=== PATIENT | female | born 1940 | race American Indian/Alaskan Native ===

== ENCOUNTER 2018-10-21 21:30 | Inpatient (IN) | payer MEDICARE ==
[2018-10-21 23:12] LABS: Alanine Aminotransferase 7 units/L (7-56); BUN/Creatinine Ratio 6; Blood Urea Nitrogen 5 mg/dL (7-17); Hemolysis Index 26
[2018-10-21] MEDS ORDERED: NACL 0.9% 1000 ML 1,000 ML IV ONE ×2 (23:34→23:44)
[2018-10-22 00:30] LABS: Basophils # (Auto) 0.1 K/mm3 (0.0-0.1); Basophils % (Auto) 1.3 % (0.0-1.8); Eosinophils # (Auto) 0.1 K/mm3 (0.0-0.4); Eosinophils % (Auto) 1.6 % (0.0-4.3); Hematocrit 34.7 % (30.3-42.9); Hemoglobin 11.1 gm/dl (10.1-14.3); Lymphocytes # (Auto) 1.1 K/mm3 (1.2-5.4); Lymphocytes % (Auto) 28.1 % (13.4-35.0); Mean Corpuscular HGB Conc 32 % (30-34); Mean Corpuscular Volume 74 fl (79-97); Monocytes # (Auto) 0.4 K/mm3 (0.0-0.8); Monocytes % (Auto) 10.3 % (0.0-7.3); Platelet Count 198 K/mm3 (140-440); Red Blood Count 4.66 M/mm3 (3.65-5.03); Red Cell Distribution Width 13.9 % (13.2-15.2)
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
--- NOTE | 2018-10-22 00:53 | XRay Report ---
PROCEDURE: XR CHEST 1V AP TECHNIQUE: A portable upright view the chest was submitted. HISTORY: Altered Mental Status COMPARISONS: None FINDINGS: The heart size and pulmonary vasculature appear normal. The lungs are clear. Pleural fluid is not see n. The skeletal structures do not show any acute changes. IMPRESSION: No acute cardiopulmonary process.. This document is electronically signed by Benson Romero MD., October 22 2018 12:50:59 AM ET
--- NOTE | 2018-10-22 00:54 | Cat Scan Report ---
COMPUTED TOMOGRAPHY, HEAD, WITHOUT. CLINICAL STATEMENT: Altered mental status. COMPARISON: None available. TECHNIQUE: Non-contrast CT brain. MPR. Overall image quality is satisfactory. COMMENTS: BONE - Calvarium: Intact. Central skull base: Intact. Temporal mastoids: No effusion. Included paranasal sinuses: Well aerated. Intracranial vascular calcifications. CSF SPACES - Ventricles: Prominent. Subarachnoid spaces: Prominent. Prominence of the sylvian fissures, sulcal enlargement and rounding of the frontal horns lateral vent ricles. BRAIN - Moderate periventricular variable white matter ages, most prominent in the left frontal white matter. The cortical ribbon appears maintained. No acute intracranial bleed, large vessel territory infarct or mass. IMPRESSION: 1. No definitive acute intracranial pathology. 2. Multifocal white matter hypodensities and prominence of the CSF containing spaces as above. Diffe rential diagnosis includes aging brain morphology, unspecified dementia or normal pressure hydrocepha kim. Correlation with clinical exam requested. RECOMMENDATION: Concern for acute on chronic small vessel ischemic change, MRI can confirm. This document is electronically signed by Donald Draper DO., October 22 2018 12:52:00 AM ET
[2018-10-22] MEDS ORDERED: ROCEPHIN/NS 1 GM/50 ML 1 GM/50 ML BAG IV ONE (01:16)
[2018-10-22] MEDS ORDERED: BABY ASPIRIN PO ONE (01:16)
[2018-10-22 02:16] LABS: Amphetamine Screen,Urine PRESUMPTIVE NEGATIVE; Benzodiazepines Screen,Urine PRESUMPTIVE NEGATIVE; Cannabinoid Screen,Urine PRESUMPTIVE NEGATIVE; Cocaine Screen,Urine PRESUMPTIVE NEGATIVE; Methadone Screen,Urine PRESUMPTIVE NEGATIVE; Opiate Screen,Urine PRESUMPTIVE NEGATIVE
[2018-10-22 02:17] LABS: Bacteria,Urine 1+ /HPF (Negative); Bilirubin,Urine NEG (Negative); Blood,Urine NEG (Negative); Color,Urine Yellow (Yellow); Mucus,Urine FEW /HPF; Protein,Urine <15 mg/dL mg/dL (Negative)
[2018-10-22] MEDS ORDERED: ZOFRAN IV PRN (02:22)
[2018-10-22] MEDS ORDERED: TYLENOL PO PRN (02:22)
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
[2018-10-22] MEDS: HEPARIN SUB-Q SCH ×2 (09:23→21:30)
[2018-10-22] MEDS ORDERED: APRESOLINE IV PRN (14:02)
--- NOTE | 2018-10-22 14:04 | Event Note ---
htn urgency I was called by RN that patient had elevated blood pressure. I have reviewed the medical reconciliation sheets. she takes Nigel inhibitor and statins at home. I have restarted her home medications and also added hydralazine when necessary hypertension
[2018-10-22] MEDS ORDERED: LOVASTATIN 20 MG PO SCH (14:15)
[2018-10-22] MEDS ORDERED: NON-FORMULARY (Lisinopril 40 MG) PO SCH (14:15)
[2018-10-22] MEDS: ZESTRIL PO SCH (18:18)
[2018-10-22] MEDS: PRAVACHOL PO SCH (21:15)
[2018-10-22] MEDS: ROCEPHIN/NS 1 GM/50 ML 1 GM/50 ML BAG IV SCH (21:41)
[2018-10-23] MEDS: ZESTRIL PO SCH (10:32)
[2018-10-23] MEDS: HEPARIN SUB-Q SCH ×2 (10:32→21:39)
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
[2018-10-23] MEDS: ROCEPHIN/NS 1 GM/50 ML 1 GM/50 ML BAG IV SCH (21:33)
[2018-10-23] MEDS: PRAVACHOL PO SCH (21:39)
[2018-10-24] MEDS: HEPARIN SUB-Q SCH ×2 (11:03→22:41)
[2018-10-24] MEDS: ZESTRIL PO SCH (14:05)
--- NOTE | 2018-10-24 14:29 | Discharge Summary ---
Providers - Providers Date of Admission: 10/22/18 03:46 Attending physician: SEEMA COOPER MD 10/22/18 02:23 Consult to Case Management [CONS] Routine Services Needed at Discharge: Other Notified:: YES Phone number called:: [phone] Was contact made?: Yes If yes, spoke with:: VISHNU Time called:: 12:14 Comment:: PATIENT NEED PLACEMENT 10/22/18 11:26 Physical Therapy Evaluation and Treat [CONS] Routine Comment: Reason For Exam: weakness Primary care physician: JANNY CONN Hospitalization Condition: Stable Hospital course: 77-year-old woman with history of Alzheimer's dementia, urinary incontinence.. The patient apparently was driving her car, driving erratically, she was pulled over by police and brought to ER Past medical history; Alzheimer's dementia, urinary incontinence, hypertension Diagnosis Acute metabolic encephalopathy UTI ruled out Alzheimer's dementia Hypokalemia Hypertensive urgency Hospital course UTI was ruled out, urine cultures were negative Potassium was repleted, BP meds are being optimized -It was discussed with her family to watch her more closely and keep car keys away from her in the future for her safety Case was discussed with her daughter Disposition: [id number] HOME UNDER HOME [facility] Time spent for discharge: 33 minutes Core Measure Documentation - Palliative Care Palliative Care/ Comfort Measures: Not Applicable - Core Measures Any of the following diagnoses?: none Exam - Physical Exam Narrative exam: General.: Appears well, no distress, nontoxic HEENT: Moist mucous membranes, extraocular muscles intact, no lymphadenopathy Neck: supple Cardiac: S1-S2 heard Lungs: clear to auscultation bilaterally Abdomen: soft , nontender, nondistended, bowel sounds positive Extremities: no edema clubbing or cyanosis Skin: no rash or lesions Neurologic: no gross focal deficits, pleasantly demented Psych: calm, and cooperative - Constitutional Vitals: Temp Pulse Resp BP Pulse Ox 99.2 F 64 20 131/48 98 10/24/18 12:47 10/24/18 12:47 10/24/18 12:47 10/24/18 12:47 10/24/18 12:47 Plan Follow up with: KIET MAURICIO MD [Referring] - 3-5 Days
--- NOTE | 2018-10-24 18:00 | Progress Note ---
Assessment and Plan Assessment and plan: 77-year-old woman with history of Alzheimer's dementia, urinary incontinence.. The patient apparently was driving her car, driving erratically, shows ampulla by police with emergency emergency room Past medical history; Alzheimer's dementia, urinary incontinence, hypertension Diagnosis Acute metabolic encephalopathy UTI ruled out Alzheimer's dementia Hypokalemia Hypertensive urgency Plan Potassium was repleted, BP meds are being optimized awaiting snf placement per family request Case was discussed with her daughter History Interval history: Review of systems Constitutional: No fevers, no malaise, no joint pains CVS: No chest pain, no orthopnea, no dyspnea on exertion, no pedal edema GI: No abdominal pain, no diarrhea, no vomiting, no constipation Respiratory: No shortness of breath, no wheezing, no coughing Hospitalist Physical - Physical exam Narrative exam: General.: Appears well, no distress, nontoxic HEENT: Moist mucous membranes, extraocular muscles intact, no lymphadenopathy Neck: supple Cardiac: S1-S2 heard Lungs: clear to auscultation bilaterally Abdomen: soft , nontender, nondistended, bowel sounds positive Extremities: no edema clubbing or cyanosis Skin: no rash or lesions Neurologic: no gross focal deficits, pleasantly demented Psych: calm, and cooperative - Constitutional Vitals: Temp Pulse Resp BP Pulse Ox 99.2 F 64 20 131/48 98 10/24/18 12:47 10/24/18 12:47 10/24/18 12:47 10/24/18 12:47 10/24/18 12:47 Results - Labs CBC & Chem 7: 10/22/18 00:08 10/23/18 13:33 Labs: Laboratory Last Values WBC 3.9 K/mm3 (4.5-11.0) L 10/22/18 00:08 RBC 4.66 M/mm3 (3.65-5.03) 10/22/18 00:08 Hgb 11.1 gm/dl (10.1-14.3) 10/22/18 00:08 Hct 34.7 % (30.3-42.9) 10/22/18 00:08 MCV 74 fl (79-97) L 10/22/18 00:08 MCH 24 pg (28-32) L 10/22/18 00:08 MCHC 32 % (30-34) 10/22/18 00:08 RDW 13.9 % (13.2-15.2) 10/22/18 00:08 Plt Count 198 K/mm3 (140-440) 10/22/18 00:08 Lymph % (Auto) 28.1 % (13.4-35.0) 10/22/18 00:08 [place] % (Auto) 10.3 % (0.0-7.3) H 10/22/18 00:08 Eos % (Auto) 1.6 % (0.0-4.3) 10/22/18 00:08 Baso % (Auto) 1.3 % (0.0-1.8) 10/22/18 00:08 Lymph # 1.1 K/mm3 (1.2-5.4) L 10/22/18 00:08 [place] # 0.4 K/mm3 (0.0-0.8) 10/22/18 00:08 Eos # 0.1 K/mm3 (0.0-0.4) 10/22/18 00:08 Baso # 0.1 K/mm3 (0.0-0.1) 10/22/18 00:08 Seg Neutrophils % 58.7 % (40.0-70.0) 10/22/18 00:08 Seg Neutrophils # 2.3 K/mm3 (1.8-7.7) 10/22/18 00:08 Sodium 142 mmol/L (137-145) 10/21/18 21:50 Potassium 3.7 mmol/L (3.6-5.0) 10/23/18 13:33 Chloride 105.8 mmol/L (98-107) 10/21/18 21:50 Carbon Dioxide 21 mmol/L (22-30) L 10/21/18 21:50 Anion Gap 19 mmol/L 10/21/18 21:50 BUN 5 mg/dL (7-17) L 10/21/18 21:50 Creatinine 0.8 mg/dL (0.7-1.2) 10/21/18 21:50 Estimated GFR > 60 ml/min 10/21/18 21:50 BUN/Creatinine Ratio 6 % 10/21/18 21:50 Glucose 87 mg/dL (65-100) 10/21/18 21:50 Lactic Acid 1.20 mmol/L (0.7-2.0) 10/21/18 23:58 Calcium 9.0 mg/dL (8.4-10.2) 10/21/18 21:50 Magnesium 2.00 mg/dL (1.7-2.3) 10/23/18 13:33 Total Bilirubin 1.10 mg/dL (0.1-1.2) 10/21/18 21:50 AST 14 units/L (5-40) 10/21/18 21:50 ALT 7 units/L (7-56) 10/21/18 21:50 Alkaline Phosphatase 70 units/L (35-129) 10/21/18 21:50 Ammonia 27.0 umol/L (25-60) 10/21/18 23:58 Total Creatine Kinase 148 units/L (30-135) H 10/21/18 23:58 Troponin T < 0.010 ng/mL (0.00-0.029) 10/21/18 23:58 Total Protein 7.2 g/dL (6.3-8.2) 10/21/18 21:50 Albumin 4.0 g/dL (3.9-5) 10/21/18 21:50 Albumin/Globulin Ratio 1.3 % 10/21/18 21:50 TSH 1.810 mlU/mL (0.270-4.200) 10/21/18 23:58 Urine Color Yellow (Yellow) 10/22/18 01:57 Urine Turbidity Hazy (Clear) 10/22/18 01:57 Urine pH 6.0 (5.0-7.0) 10/22/18 01:57 Ur Specific [place] 1.010 (1.003-1.030) 10/22/18 01:57 Urine Protein <15 mg/dl mg/dL (Negative) 10/22/18 01:57 Urine Glucose (UA) Neg mg/dL (Negative) 10/22/18 01:57 Urine Ketones 20 mg/dL (Negative) 10/22/18 01:57 Urine Blood Neg (Negative) 10/22/18 01:57 Urine Nitrite Neg (Negative) 10/22/18 01:57 Urine Bilirubin Neg (Negative) 10/22/18 01:57 Urine Urobilinogen 2.0 mg/dL (<2.0) 10/22/18 01:57 Ur Leukocyte Esterase Mod (Negative) 10/22/18 01:57 Urine WBC (Auto) 17.0 /HPF (0.0-6.0) H 10/22/18 01:57 Urine RBC (Auto) 1.0 /HPF (0.0-6.0) 10/22/18 01:57 U Epithel Cells (Auto) < 1.0 /HPF (0-13.0) 10/22/18 01:57 Urine Bacteria (Auto) 1+ /HPF (Negative) 10/22/18 01:57 Urine Mucus Few /HPF 10/22/18 01:57 Salicylates < 0.3 mg/dL (2.8-20.0) L 10/21/18 23:58 Urine Opiates Screen Presumptive negative 10/22/18 01:57 Urine Methadone Screen Presumptive negative 10/22/18 01:57 Acetaminophen < 5.0 ug/mL (10.0-30.0) L 10/21/18 23:58 Ur Barbiturates Screen Presumptive negative 10/22/18 01:57 Ur Phencyclidine Scrn Presumptive negative 10/22/18 01:57 Ur Amphetamines Screen Presumptive negative 10/22/18 01:57 U Benzodiazepines Scrn Presumptive negative 10/22/18 01:57 Urine Cocaine Screen Presumptive negative 10/22/18 01:57 U Marijuana (THC) Screen Presumptive negative 10/22/18 01:57 Drugs of Abuse Note Disclamer 10/22/18 01:57 Plasma/Serum Alcohol < 0.01 % (0-0.07) 10/21/18 23:58 Nutrition/Malnutrition Assess - Dietary Evaluation Nutrition/Malnutrition Findings: Nutrition Notes Start: 10/22/18 14:48 Freq: Status: Active Protocol: Document 10/22/18 14:48 RM (Rec: 10/22/18 14:58 RM [id number]) Nutrition Notes Need for Assessment generated from: welfare worker Initial or Follow up Assessment Other Pertinent Diagnosis Alzheimer dementia, Urinary incontinence, UTI Current Diet Regular Labs/Tests Reviewed Pertinent Medications Reviewed Height 5 ft 4 in Weight 65.503 kg Usual Body Weight 68.18 kg [place] Body Weight (kg) 54.54 BMI 24.7 Weight change and time frame 3.9% wt loss X 1 year Subjective/Other Information Screened for skin risk. Earle 18 points. Pt, pt sister, and pt [id number] in room at time of visit. Pt sister and fjujrzy-iu-[id number] helped answered questions. 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 Stated that pt ate half of her breakfast this morning. Estimated pt UBW of 150 lbs 1 year ago. 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 No Is Patient Ambulatory and/or Out of Bed Yes REE-([facility]-ambulatory/OOB) [ 1449.539 NUTR.MSJOOB] Calculation Used for Recommendations [facility] Additional Notes Protein Needs: 64-76g (1-1.2g/ kg) Fluid Needs: 1 ml/kcal Nutrition Intervention Change Diet Order: Continue current Add Supplement/Snack (indicate name/kcal Ensure Enlive [place] 1 /protein ) daily Provides kCal: 350 Provides Protein (gm) 20 Goal #1 Meet at least 75% of calorie and protein needs via PO and ONS intakes Goal #2 Wt maintenance Anticipated Discharge Needs: Regular diet Follow-Up By: 10/25/18 Additional Comments Follow for PO and ONS intakes
[2018-10-24] MEDS ORDERED: RisperDAL PO ONE (20:54)
[2018-10-24] MEDS: PRAVACHOL PO SCH (22:30)
[2018-10-24] MEDS: ROCEPHIN/NS 1 GM/50 ML 1 GM/50 ML BAG IV SCH (22:30)
[2018-10-25] MEDS: ZESTRIL PO SCH (09:52)
[2018-10-25] MEDS: HEPARIN SUB-Q SCH ×2 (09:53→10:00)
--- NOTE | 2018-10-25 10:52 | Progress Note ---
Hospitalist Physical - Constitutional Vitals: Temp Pulse Resp BP Pulse Ox 98.5 F 65 20 146/62 98 10/25/18 07:34 10/25/18 09:52 10/25/18 07:34 10/25/18 09:52 10/25/18 09:41 Results - Labs CBC & Chem 7: 10/22/18 00:08 10/23/18 13:33 Labs: Laboratory Last Values WBC 3.9 K/mm3 (4.5-11.0) L 10/22/18 00:08 RBC 4.66 M/mm3 (3.65-5.03) 10/22/18 00:08 Hgb 11.1 gm/dl (10.1-14.3) 10/22/18 00:08 Hct 34.7 % (30.3-42.9) 10/22/18 00:08 MCV 74 fl (79-97) L 10/22/18 00:08 MCH 24 pg (28-32) L 10/22/18 00:08 MCHC 32 % (30-34) 10/22/18 00:08 RDW 13.9 % (13.2-15.2) 10/22/18 00:08 Plt Count 198 K/mm3 (140-440) 10/22/18 00:08 Lymph % (Auto) 28.1 % (13.4-35.0) 10/22/18 00:08 [place] % (Auto) 10.3 % (0.0-7.3) H 10/22/18 00:08 Eos % (Auto) 1.6 % (0.0-4.3) 10/22/18 00:08 Baso % (Auto) 1.3 % (0.0-1.8) 10/22/18 00:08 Lymph # 1.1 K/mm3 (1.2-5.4) L 10/22/18 00:08 [place] # 0.4 K/mm3 (0.0-0.8) 10/22/18 00:08 Eos # 0.1 K/mm3 (0.0-0.4) 10/22/18 00:08 Baso # 0.1 K/mm3 (0.0-0.1) 10/22/18 00:08 Seg Neutrophils % 58.7 % (40.0-70.0) 10/22/18 00:08 Seg Neutrophils # 2.3 K/mm3 (1.8-7.7) 10/22/18 00:08 Sodium 142 mmol/L (137-145) 10/21/18 21:50 Potassium 3.7 mmol/L (3.6-5.0) 10/23/18 13:33 Chloride 105.8 mmol/L (98-107) 10/21/18 21:50 Carbon Dioxide 21 mmol/L (22-30) L 10/21/18 21:50 Anion Gap 19 mmol/L 10/21/18 21:50 BUN 5 mg/dL (7-17) L 10/21/18 21:50 Creatinine 0.8 mg/dL (0.7-1.2) 10/21/18 21:50 Estimated GFR > 60 ml/min 10/21/18 21:50 BUN/Creatinine Ratio 6 % 10/21/18 21:50 Glucose 87 mg/dL (65-100) 10/21/18 21:50 Lactic Acid 1.20 mmol/L (0.7-2.0) 10/21/18 23:58 Calcium 9.0 mg/dL (8.4-10.2) 10/21/18 21:50 Magnesium 2.00 mg/dL (1.7-2.3) 10/23/18 13:33 Total Bilirubin 1.10 mg/dL (0.1-1.2) 10/21/18 21:50 AST 14 units/L (5-40) 10/21/18 21:50 ALT 7 units/L (7-56) 10/21/18 21:50 Alkaline Phosphatase 70 units/L (35-129) 10/21/18 21:50 Ammonia 27.0 umol/L (25-60) 10/21/18 23:58 Total Creatine Kinase 148 units/L (30-135) H 10/21/18 23:58 Troponin T < 0.010 ng/mL (0.00-0.029) 10/21/18 23:58 Total Protein 7.2 g/dL (6.3-8.2) 10/21/18 21:50 Albumin 4.0 g/dL (3.9-5) 10/21/18 21:50 Albumin/Globulin Ratio 1.3 % 10/21/18 21:50 TSH 1.810 mlU/mL (0.270-4.200) 10/21/18 23:58 Urine Color Yellow (Yellow) 10/22/18 01:57 Urine Turbidity Hazy (Clear) 10/22/18 01:57 Urine pH 6.0 (5.0-7.0) 10/22/18 01:57 Ur Specific [place] 1.010 (1.003-1.030) 10/22/18 01:57 Urine Protein <15 mg/dl mg/dL (Negative) 10/22/18 01:57 Urine Glucose (UA) Neg mg/dL (Negative) 10/22/18 01:57 Urine Ketones 20 mg/dL (Negative) 10/22/18 01:57 Urine Blood Neg (Negative) 10/22/18 01:57 Urine Nitrite Neg (Negative) 10/22/18 01:57 Urine Bilirubin Neg (Negative) 10/22/18 01:57 Urine Urobilinogen 2.0 mg/dL (<2.0) 10/22/18 01:57 Ur Leukocyte Esterase Mod (Negative) 10/22/18 01:57 Urine WBC (Auto) 17.0 /HPF (0.0-6.0) H 10/22/18 01:57 Urine RBC (Auto) 1.0 /HPF (0.0-6.0) 10/22/18 01:57 U Epithel Cells (Auto) < 1.0 /HPF (0-13.0) 10/22/18 01:57 Urine Bacteria (Auto) 1+ /HPF (Negative) 10/22/18 01:57 Urine Mucus Few /HPF 10/22/18 01:57 Salicylates < 0.3 mg/dL (2.8-20.0) L 10/21/18 23:58 Urine Opiates Screen Presumptive negative 10/22/18 01:57 Urine Methadone Screen Presumptive negative 10/22/18 01:57 Acetaminophen < 5.0 ug/mL (10.0-30.0) L 10/21/18 23:58 Ur Barbiturates Screen Presumptive negative 10/22/18 01:57 Ur Phencyclidine Scrn Presumptive negative 10/22/18 01:57 Ur Amphetamines Screen Presumptive negative 10/22/18 01:57 U Benzodiazepines Scrn Presumptive negative 10/22/18 01:57 Urine Cocaine Screen Presumptive negative 10/22/18 01:57 U Marijuana (THC) Screen Presumptive negative 10/22/18 01:57 Drugs of Abuse Note Disclamer 10/22/18 01:57 Plasma/Serum Alcohol < 0.01 % (0-0.07) 10/21/18 23:58 Active Medications - Current Medications Current Medications: Generic Name Dose Route Start Last Admin Trade Name Freq PRN Reason Stop Dose Admin Acetaminophen 650 mg 10/22/18 02:22 10/23/18 21:33 Tylenol PO 650 mg Q4H PRN Administration Fever >101 Heparin Sodium (Porcine) 5,000 unit 10/22/18 10:00 10/25/18 10:00 Heparin SUB-Q Not Given Q12HR JOSE MIGUEL Hydralazine HCl 10 mg 10/22/18 14:02 Apresoline IV Q4HR PRN BP >160/100 Ceftriaxone Sodium 1 gm in 50 mls @ 100 mls/hr 10/22/18 22:00 10/24/18 22:30 Rocephin/Ns 1 Gm/50 Ml IV 100 mls/hr Q24HR@2200 JOSE MIGUEL Administration Protocol Lisinopril 40 mg 10/22/18 18:00 10/25/18 09:52 Zestril PO 40 mg QDAY JOSE MIGUEL Administration Ondansetron HCl 4 mg 10/22/18 02:22 10/23/18 21:33 Zofran IV 4 mg Q8H PRN Administration Nausea And Vomiting Pravastatin Sodium 20 mg 10/22/18 22:00 10/24/18 22:30 Pravachol PO 20 mg QHS JOSE MIGUEL Administration Nutrition/Malnutrition Assess - Dietary Evaluation Nutrition/Malnutrition Findings: Nutrition Notes Start: 10/22/18 14: 48 Freq: Status: Active Protocol: Document 10/22/18 14:48 RM (Rec: 10/22/18 14:58 RM [id number]) Nutrition Notes Need for Assessment generated from: fast food attendant Initial or Follow up Assessment Other Pertinent Diagnosis Alzheimer dementia, Urinary incontinence, UTI Current Diet Regular Labs/Tests Reviewed Pertinent Medications Reviewed Height 5 ft 4 in Weight 65.503 kg Usual Body Weight 68.18 kg [place] Body Weight (kg) 54.54 BMI 24.7 Weight change and time frame 3.9% wt loss X 1 year Subjective/Other Information Screened for skin risk. Earle 18 points. Pt, pt sister, and pt [id number] in room at time of visit. Pt sister and [id number] helped answered questions. 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 Stated that pt ate half of her breakfast this morning. Estimated pt UBW of 150 lbs 1 year ago. 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 No Is Patient Ambulatory and/or Out of Bed Yes REE-([facility]-ambulatory/OOB) [ 1449.539 NUTR.MSJOOB] Calculation Used for Recommendations [facility] Additional Notes Protein Needs: 64-76g (1-1.2g/ kg) Fluid Needs: 1 ml/kcal Nutrition Intervention Change Diet Order: Continue current Add Supplement/Snack (indicate name/kcal Ensure Enlive [place] 1 /protein ) daily Provides kCal: 350 Provides Protein (gm) 20 Goal #1 Meet at least 75% of calorie and protein needs via PO and ONS intakes Goal #2 Wt maintenance Anticipated Discharge Needs: Regular diet Follow-Up By: 10/25/18 Additional Comments Follow for PO and ONS intakes
[2018-10-25 13:37] VITALS: BP 137/54
== END 2018-10-25 21:15 | disposition home health service (06) | DRG 71 ==
LOC: ED 21:30 → 2B-ACE 10-22 03:46
PROVIDERS: ADMIT Internal Medicine; ATTEND Internal Medicine
DX: G93.41 Metabolic encephalopathy (principal); F02.81 Dementia in other diseases classified elsewhere, unspecified severity, with behavioral disturbance; G30.9 Alzheimer's disease, unspecified; E87.6 Hypokalemia; I16.0 Hypertensive urgency; I10 Essential (primary) hypertension; Z91.83 Wandering in diseases classified elsewhere
CPT/HCPCS: 36415; 70450; 71045; 80048; 80053; 80307; 80320; 81001; 82140; 82550; 83735; 84132; 84443; 84484; 85025; 87040; 87086; 93005; 93010; 96365; 99285; G0378; A9270-GY; G0480; J0696; J1644; J2405; J7030